=== PATIENT | male | born 1965 | race Caucasian/White ===

== ENCOUNTER 2017-01-16 00:29 | Emergency (ER) | payer OTHER ==
[2017-01-16 01:30] LABS: BASO % 0.5 % (0.0-1.0); EOS # 0.2 K/mm3 (0.0-0.50); EOS % 2.6 % (0.0-3.0); LARGE UNSTAINED CELL # 0.1 K/mm3 (0.0-0.4); LARGE UNSTAINED CELL % 1.8 % (0.0-4.0); MEAN CORPUSCULAR HEMOGLOBIN 29.2 pg (27.0-33.0); MEAN CORPUSCULAR VOLUME 85.7 fl (80.0-96.0); MONO # 0.4 K/mm3 (0.0-0.8); PLATELET COUNT, AUTOMATED 181 k/mm3 (150-450); RED CELL DISTRIBUTION WIDTH 12.7 % (11.5-14.5); WHITE BLOOD COUNT 5.6 K/mm3 (4.0-10.0)
[2017-01-16 01:38] LABS: ANION GAP 7 MEQ/L (8-16); BLOOD UREA NITROGEN 16 MG/DL (7-18); CALCIUM LEVEL 8.9 MG/DL (8.5-10.1); CARBON DIOXIDE LEVEL 29 MEQ/L (21-32); CHLORIDE LEVEL 108 MEQ/L (98-107); CREATININE FOR GFR 1.15 MG/DL (0.70-1.30); GLOMERULAR FILTRATION RATE > 60.0 (>56); GLUCOSE, FASTING 142 MG/DL (70-105); POTASSIUM SERUM 3.7 MEQ/L (3.5-5.1); SODIUM LEVEL 144 MEQ/L (136-145)
[2017-01-16] MEDS ORDERED: KETOROLAC 30 MG/ML VIAL (J1885) As Ordered ONE (02:40)
--- NOTE | 2017-01-16 04:17 | EDDOCDS ---
Physician Documentation [facility] Name: Dominick Jeter Age: 51 yrs Sex: Male : 1965 Arrival Date: 01/16/2017 Time: 00:29 Bed 4 Private MD: Disposition: 01/16/17 03:42 Discharged to Home/Self Care. Impression: Chest pain, unspecified. - Condition is Stable. - Discharge Instructions: Chest Wall Pain. - Prescriptions for Prednisone 20 mg Oral Tablet - take 2 tablet by ORAL route once daily for 5 days; 10 tablet. - Medication Reconciliation, Local Pharmacy Hours form. - Follow up: [facility]; When: Call to arrange an appointment; Reason: Continuance of care. - Problem is an acute exacerbation. - Symptoms have improved. Historical: - Allergies: Ibuprofendoesn't take due to ulcer; - Home Meds: 1. doxazosin 2 mg oral tab 1 tab once daily 2. fenofibrate 145 mg oral once daily 3. Fish Oil 1,000 mg Oral cap daily 4. metformin 500 mg Oral Tb24 2 tabs 2 times per day has held Metformin for 2 days due to having contrast dye for CT scan on 08/24/16 5. pantoprazole 40 mg oral TbEC 1 tab once daily 6. aspirin 81 mg Oral tab 7. Augmentin 875-125 mg Oral tab (Last dose: 01/15/2017 22:30) - PMHx: Diabetes - NIDDM: controlled; Hypercholesterolemia; ulcers; - PSHx: back surgery X 9; Appendectomy; Hernia repair; dorsal column stimulator; - Social history: Smoking status: Patient states was never smoker of tobacco. No barriers to communication noted, The patient speaks fluent Greek, Speaks appropriately for age. - Family history: Not pertinent. - : The pt / caregiver states he / she is not on anticoagulants. Home medication list is obtained from [employer] import data. - Exposure Risk Screening:: None identified. Vital Signs: 01/16 00:40 BP 177 / 98; Pulse 105; Resp 16; Temp 98.3(O); Pulse Ox 98% on R/A; Weight 88.9 kg / cz 195.99 lbs; Height 5 ft. 9 in. (175.26 cm); 00:48 BP 136 / 83 (auto/); js15 00:50 Pulse 80 MON; Pulse Ox 97% ; js15 01:03 BP 128 / 73 (auto/); js15 01:03 Pulse 76 MON; Pulse Ox 96% ; js15 01:18 BP 119 / 68 (auto/); js15 01:19 Pulse 72 MON; Pulse Ox 95% ; js15 03:44 BP 100 / 59; Pulse 59; Resp 18; Temp 98.6(O); Pulse Ox 95% on R/A; Pain 0/10; tigist 00:40 Body Mass Index 28.94 (88.90 kg, 175.26 cm) cz MDM: 00:34 ECG WITH READING ER PHYS+CARDIAG ordered. EDMS 00:51 Theater Manager/Pulse Ox/q 30 min VS ordered. nov 00:51 IV Saline Lock ordered. nov 00:51 Rhythm Strip to chart ordered. nov 00:51 Undress patient appropriately for examination ordered. nov 00:52 Basic Metabolic Profile Ordered. EDMS 00:52 CBC with Diff Ordered. EDMS 00:52 Cardiac Injury Profile Ordered. EDMS 00:52 Troponin Ordered. EDMS 01:05 Chest, 1 View Ordered. EDMS 02:25 Basic Metabolic Profile Reviewed. mm11 02:25 CBC with Diff Reviewed. mm11 02:25 Cardiac Injury Profile Reviewed. mm11 02:25 Troponin Reviewed. mm11 02:34 ketorolac 30 mg IVP once ordered. mm11 03:23 Financial registration complete. pm4 03:26 [facility] Payment Agreement was scanned into [employer] and attached to record. pm4 Administered Medications: 02:44 Drug: ketorolac 30 mg [ketorolac 30 mg/mL (1 mL) injection solution (1 mL)] Route: IVP; js15 Site: right antecubital; 04:15 Follow up: Response: Pain is decreased rw1 Signatures: Dispatcher [employer] EDMS Tila Naik RN RN jan Zecher, Calvin, RN RN Ba Woods LPN LPN rw1 Aubrey Arango DO DO mm11 Marta WoodRN RN js15 Jeffy Malik, Reg Reg pm4 The chart was reviewed and I authenticate all verbal orders and agree with the evaluation and treatment provided.Attachments: 03:26 [facility] Payment Agreement pm4 MTDD
--- NOTE | 2017-01-16 04:17 | EDDOCDS ---
Nurse's Notes [facility] Name: Dominick Jeter Age: 51 yrs Sex: Male : 1965 Arrival Date: 01/16/2017 Time: 00:29 Bed 4 Private MD: Diagnosis: Chest pain, unspecified Presentation: 01/16 00:35 Presenting complaint: Patient states: he started with chest pain around 2230 last night cz pt was seen at urgent care yesterday for sore throat and cough dx sinusitis and URI symptoms heavy chest feelings for several weeks seen and treated for same. 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 Adult Sepsis Screening: The patient does not have new or worsening altered mentation. Patient's respiratory rate is less than 22. Systolic blood pressure is greater than 100. Patient has a qSOFA score of 0- Negative Sepsis Screen. Suicide/Homicide risk assessment- the patient denies having any suicidal and/or homicidal ideations and does not present with any other emotional, behavioral or mental health complaints. Status: disabled . Transition of care: patient was not received from another setting of care. Red Flag criteria, patient assessed and is suitable to finish the RCE Process. 00:35 Acuity: NIKOS Level 2 cz 00:35 Method Of Arrival: Walkin/Carried/Asstd cz Triage Assessment: 00:40 General: Appears uncomfortable. Pain: Location: anterior aspect of right upper chest, cz anterior aspect of left upper chest and xyphoid area Pain currently is 8 out of 10 on a pain scale. HIV screening NA for this visit Offered previously. Historical: - Allergies: Ibuprofendoesn't take due to ulcer; - Home Meds: 1. doxazosin 2 mg oral tab 1 tab once daily 2. fenofibrate 145 mg oral once daily 3. Fish Oil 1,000 mg Oral cap daily 4. metformin 500 mg Oral Tb24 2 tabs 2 times per day has held Metformin for 2 days due to having contrast dye for CT scan on 08/24/16 5. pantoprazole 40 mg oral TbEC 1 tab once daily 6. aspirin 81 mg Oral tab 7. Augmentin 875-125 mg Oral tab (Last dose: 01/15/2017 22:30) - PMHx: Diabetes - NIDDM: controlled; Hypercholesterolemia; ulcers; - PSHx: back surgery X 9; Appendectomy; Hernia repair; dorsal column stimulator; - Social history: Smoking status: Patient states was never smoker of tobacco. No barriers to communication noted, The patient speaks fluent German, Speaks appropriately for age. - Family history: Not pertinent. - : The pt / caregiver states he / she is not on anticoagulants. Home medication list is obtained from [employer] import data. - Exposure Risk Screening:: None identified. Screenin:50 Screening information is obtained from the patient. Fall risk: No risks identified. js15 Assistance ADL's: requires no assistance with activities of daily living. Abuse/DV Screen: The patient / caregiver reports he/she is: not in a situation that causes fear, pain or injury. Nutritional screening: No deficits noted. Advance Directives: There is no active DNR order. home support is adequate. Assessment: 01:32 General: Appears uncomfortable, Behavior is anxious, appropriate for age, cooperative. js15 Pain: Location: chest and xyphoid area and anterior aspect of left upper chest and anterior aspect of right upper chest Pain currently is 10 out of 10 on a pain scale. Quality of pain is described as stabbing, Pain began 2 hours ago. Neurological: Level of Consciousness is awake, alert, obeys commands, Oriented to person, place, time. Cardiovascular: Capillary refill < 3 seconds Heart tones S1 S2 present Rhythm is sinus rhythm Chest pain is described as severe, quality is stabbing, is located in right left anterior chest wall substernal area Reports cough. Respiratory: Airway is patent Respiratory effort is even, unlabored, Respiratory pattern is regular, symmetrical, Breath sounds are diminished in left upper lobe and left posterior upper lobe. GI: Abdomen is non- distended Bowel sounds present X 4 quads. Abd is soft and non tender X 4 quads. Derm: Skin is pink, warm & dry. 04:14 Reassessment: Patient appears in no apparent distress at this time. Patient denies pain rw1 at this time. Patient states feeling better. Patient states symptoms have improved. Vital Signs: 00:40 BP 177 / 98; Pulse 105; Resp 16; Temp 98.3(O); Pulse Ox 98% on R/A; Weight 88.9 kg; cz Height 5 ft. 9 in. (175.26 cm); 00:48 BP 136 / 83 (auto/); js15 00:50 Pulse 80 MON; Pulse Ox 97% ; js15 01:03 BP 128 / 73 (auto/); js15 01:03 Pulse 76 MON; Pulse Ox 96% ; js15 01:18 BP 119 / 68 (auto/); js15 01:19 Pulse 72 MON; Pulse Ox 95% ; js15 03:44 BP 100 / 59; Pulse 59; Resp 18; Temp 98.6(O); Pulse Ox 95% on R/A; Pain 0/10; tigist 00:40 Body Mass Index 28.94 (88.90 kg, 175.26 cm) cz Vitals: 00:40 Log In Time: January 16, 2017 at 00:29. cz ED Course: 00:30 Patient visited by Katiuska Nichole. gjb 00:30 Patient moved to Waiting gjb 00:37 Triage Initiated cz 00:44 Kim Boogie RN is Primary Nurse. dsf 00:44 Patient moved to 4 dsf 00:49 Patient visited by Jaime Ramsey PCA. kb5 00:49 EKG done. (by ED staff). Reviewed by Aubrey Arango DO. kb5 00:50 Patient visited by Salina Rushing PCA. tigist 00:50 Pt greeted and oriented to ED. Patient advised of names of staff involved in care, tigist location of call marina, wait times and NPO status. Accompanied by Significant Other, Patient has correct armband on for positive identification. Placed in gown. Bed in low position. Call light in reach. Side rails up X2. secured entrance monitor on. Pulse ox on. NIBP on. 00:54 Primary Nurse role handed off by Kim Boogie RN tigist 00:56 Aubrey Arango DO is Attending Physician. mm11 00:56 Patient visited by Aubrey Arango DO. mm11 01:12 The patient / caregiver is instructed regarding the plan of care and ED course. nov 01:12 Inserted saline lock: 20 gauge in right antecubital area and blood collected. The nov patient tolerated the procedure well. 01:34 Patient visited by Marta Wood RN. js15 02:33 Patient visited by Aubrey Arango DO. mm11 03:26 [facility] Payment Agreement was scanned into [employer] and attached to record. pm4 03:39 Patient visited by Aubrey Arango DO. mm11 03:42 [facility] [place] is Referral Physician. mm11 03:45 Patient visited by Salina Rushing PCA. tigist 04:14 Discontinued IV lock intact, bleeding controlled, pressure dressing applied, No rw1 redness/swelling at site. No procedures done that require assistance. Administered Medications: 02:44 Drug: ketorolac 30 mg [ketorolac 30 mg/mL (1 mL) injection solution (1 mL)] Route: IVP; js15 Site: right antecubital; 04:15 Follow up: Response: Pain is decreased rw1 Order Results: Lab Order: Basic Metabolic Profile; SPEC'M 01/16/17 01:02 Test: GLUCOSE, FASTING; Value: 142; Range: 70-105; Abnormal: Above high normal; Units: MG/DL; Status: F Test: BLOOD UREA NITROGEN; Value: 16; Range: 7-18; Units: MG/DL; Status: F Test: CREATININE FOR GFR; Value: 1.15; Range: 0.70-1.30; Units: MG/DL; Status: F Test: GLOMERULAR FILTRATION RATE; Value: > 60.0; Range: >56; Status: F Test: SODIUM LEVEL; Value: 144; Range: 136-145; Units: MEQ/L; Status: F Test: POTASSIUM SERUM; Value: 3.7; Range: 3.5-5.1; Units: MEQ/L; Status: F Test: CHLORIDE LEVEL; Value: 108; Range: 98-107; Abnormal: Above high normal; Units: MEQ/L; Status: F Test: CARBON DIOXIDE LEVEL; Value: 29; Range: 21-32; Units: MEQ/L; Status: F Test: ANION GAP; Value: 7; Range: 8-16; Abnormal: Below low normal; Units: MEQ/L; Status: F Test: CALCIUM LEVEL; Value: 8.9; Range: 8.5-10.1; Units: MG/DL; Status: F Test Note: ; Units are mL/min/1.73 m2 Chronic Kidney Disease Staging per NKF: Stage I & II GFR >=60 Normal to Mildly Decreased Stage III GFR 30-59 Moderately Decreased Stage IV GFR 15-29 Severely Decreased Stage V GFR <15 Very Little GFR Left ESRD GFR <15 on FORENSIC COMPUTER EXAMINER Lab Order: CBC with Diff; SPEC'M 01/16/17 01:02 Test: WHITE BLOOD COUNT; Value: 5.6; Range: 4.0-10.0; Units: K/mm3; Status: F Test: RED BLOOD COUNT; Value: 4.83; Range: 4.30-6.10; Units: M/mm3; Status: F Test: HEMOGLOBIN; Value: 14.1; Range: 14.0-18.0; Units: g/dl; Status: F Test: HEMATOCRIT; Value: 41.4; Range: 42.0-52.0; Abnormal: Below low normal; Units: %; Status: F Test: MEAN CORPUSCULAR VOLUME; Value: 85.7; Range: 80.0-96.0; Units: fl; Status: F Test: MEAN CORPUSCULAR HEMOGLOBIN; Value: 29.2; Range: 27.0-33.0; Units: pg; Status: F Test: MEAN CORPUSCULAR HGB CONC; Value: 34.0; Range: 32.0-36.5; Units: g/dl; Status: F Test: RED CELL DISTRIBUTION WIDTH; Value: 12.7; Range: 11.5-14.5; Units: %; Status: F Test: PLATELET COUNT, AUTOMATED; Value: 181; Range: 150-450; Units: k/mm3; Status: F Test: NEUTROPHILS %; Value: 54.0; Range: 36.0-66.0; Units: %; Status: F Test: LYMPH %; Value: 34.0; Range: 24.0-44.0; Units: %; Status: F Test: MONO %; Value: 7.0; Range: 0.0-5.0; Abnormal: Above high normal; Units: %; Status: F Test: EOS %; Value: 2.6; Range: 0.0-3.0; Units: %; Status: F Test: BASO %; Value: 0.5; Range: 0.0-1.0; Units: %; Status: F Test: LARGE UNSTAINED CELL %; Value: 1.8; Range: 0.0-4.0; Units: %; Status: F Test: NEUTROPHILS #; Value: 3.0; Range: 1.8-7.7; Units: K/mm3; Status: F Test: LYMPH #; Value: 2.0; Range: 1.5-4.5; Units: K/mm3; Status: F Test: MONO #; Value: 0.4; Range: 0.0-0.8; Units: K/mm3; Status: F Test: EOS #; Value: 0.2; Range: 0.0-0.50; Units: K/mm3; Status: F Test: BASO #; Value: 0.0; Range: 0.0-0.2; Units: K/mm3; Status: F Test: LARGE UNSTAINED CELL #; Value: 0.1; Range: 0.0-0.4; Units: K/mm3; Status: F Lab Order: Cardiac Injury Profile; SPEC'M 01/16/17 01:02 Test: CPK CREATINE PHOSPHOKINASE; Value: 135; Range: 39-308; Units: U/L; Status: F Test: CK-MB VALUE MASS; Value: 2.0; Range: 0.0-3.6; Units: NG/ML; Status: F Test: MB/CK RELATIVE INDEX; Value: 1.48; Range: < OR =4; Status: F Test Note: ; DIAGNOSIS CRITERIA MMB ng/ml Relative Index (RI) NON-AMI < or = 5 N/A [place] > 5 < or = 4 AMI > 5 > 4 Lab Order: Troponin; SPEC'M 01/16/17 01:02 Test: TROPONIN I; Value: 0.02; Range: < 0.10; Units: NG/ML; Status: F Test Note: ; Troponin I Reference Interval for [employer] LOCI: 99th Percentile= 0.00-0.045 ng/ml Risk Stratification: <= 0.10 ng/ml Decreased Risk for Adverse Clinical Events. 0.10-1.50 ng/ml Increased Risk for Adverse Clinical Events. Evaluation of additional criterion and/or repeat testing in 2-6 hours is suggested to rule out myocardial damage. >= 1.50 ng/ml Indicative of Myocardial Injury. Outcome: 03:42 Discharge ordered by Provider. mm11 04:14 Discharge Assessment: Patient awake, alert and oriented x 3. No cognitive and/or rw1 functional deficits noted. Patient verbalized understanding of disposition instructions. patient administered narcotics -. 04:15 Discharge Assessment: patient administered narcotics - no. The following High Risk rw1 Discharge criteria are identified: None. Discharged to home ambulatory, with significant other. Condition: stable Condition: improved. Discharge instructions given to patient, Instructed on discharge instructions, follow up and referral plans. medication usage, Demonstrated understanding of instructions, medications, Pt was receptive of discharge instructions/ teaching. Prescriptions given X 1. No special radiology studies were completed. Property sent home with patient. 04:16 Patient left the ED. rw1 Signatures: Tila Naik, RN RN Jimmy Gamboa, RN RN Ba Woods LPN LPN rw1 Jaime Ramsey, WASTE MINIMIZATION TECHNICIAN WASTE MINIMIZATION TECHNICIAN kb5 Aubrey Arango, DO mm11 Salina Rushing, WASTE MINIMIZATION TECHNICIAN WASTE MINIMIZATION TECHNICIAN Payton Castillo,RN RN Marta Coughlin,RN RN js15 Katiuska Nichole Paul, Reg Reg pm4 SEPIDEH
--- NOTE | 2017-01-16 08:34 | REP ---
Clinical: Chest pain . Comparison: 08/26/2016 . Findings: The mediastinum and cardiac silhouette are stable and within normal limits for portable technique. Thoracic epidural stimulator device in stable position. The lung christie are clear without acute consolidation, effusion, or pneumothorax. Skeletal structures are intact. Impression: Normal portable chest x-ray Signed by Dominick Valle MD 01/16/2017 08:25 A
--- NOTE | 2017-01-16 08:38 | ECGEPIP ---
Stationary ECG Study [facility] - ED Test Date: 2017-01-16 Pat Name: ED BUTLER Department: Room: - Gender: M [employer] Electrician: LUCILLE : 1965 Requested By: JULIAN Iglesias Order Number: [id number] Reading MD: Burak Parsons Measurements Intervals [place] Rate: 83 P: 49 HI: 132 QRS: 54 QRSD: 101 T: 53 QT: 365 QTc: 431 Interpretive Statements SINUS RHYTHM POSSIBLE LAE SIMILAR TO 08/26/16 Electronically Signed On 01-16-2017 8:37:52 EST by Burak Parsons
--- NOTE | 2017-01-18 05:17 | EDDOCDS ---
Physician Documentation [facility] Name: Dominick Jeter Age: 51 yrs Sex: Male : 1965 Arrival Date: 01/16/2017 Time: 00:29 Bed 4 Private MD: Disposition: 01/16/17 03:42 Discharged to Home/Self Care. Impression: Chest pain, unspecified. - Condition is Stable. - Discharge Instructions: Chest Wall Pain. - Prescriptions for Prednisone 20 mg Oral Tablet - take 2 tablet by ORAL route once daily for 5 days; 10 tablet. - Medication Reconciliation, Local Pharmacy Hours form. - Follow up: [facility]; When: Call to arrange an appointment; Reason: Continuance of care. - Problem is an acute exacerbation. - Symptoms have improved. Historical: - Allergies: Ibuprofendoesn't take due to ulcer; - Home Meds: 1. doxazosin 2 mg oral tab 1 tab once daily 2. fenofibrate 145 mg oral once daily 3. Fish Oil 1,000 mg Oral cap daily 4. metformin 500 mg Oral Tb24 2 tabs 2 times per day has held Metformin for 2 days due to having contrast dye for CT scan on 08/24/16 5. pantoprazole 40 mg oral TbEC 1 tab once daily 6. aspirin 81 mg Oral tab 7. Augmentin 875-125 mg Oral tab (Last dose: 01/15/2017 22:30) - PMHx: Diabetes - NIDDM: controlled; Hypercholesterolemia; ulcers; - PSHx: back surgery X 9; Appendectomy; Hernia repair; dorsal column stimulator; - Social history: Smoking status: Patient states was never smoker of tobacco. No barriers to communication noted, The patient speaks fluent Khmer, Speaks appropriately for age. - Family history: Not pertinent. - : The pt / caregiver states he / she is not on anticoagulants. Home medication list is obtained from [employer] import data. - Exposure Risk Screening:: None identified. Vital Signs: 01/16 00:40 BP 177 / 98; Pulse 105; Resp 16; Temp 98.3(O); Pulse Ox 98% on R/A; Weight 88.9 kg / cz 195.99 lbs; Height 5 ft. 9 in. (175.26 cm); 00:48 BP 136 / 83 (auto/); js15 00:50 Pulse 80 MON; Pulse Ox 97% ; js15 01:03 BP 128 / 73 (auto/); js15 01:03 Pulse 76 MON; Pulse Ox 96% ; js15 01:18 BP 119 / 68 (auto/); js15 01:19 Pulse 72 MON; Pulse Ox 95% ; js15 03:44 BP 100 / 59; Pulse 59; Resp 18; Temp 98.6(O); Pulse Ox 95% on R/A; Pain 0/10; tigist 00:40 Body Mass Index 28.94 (88.90 kg, 175.26 cm) cz MDM: 00:34 ECG WITH READING ER PHYS+CARDIAG ordered. EDMS 00:51 Preassembler And Inspector/Pulse Ox/q 30 min VS ordered. nov 00:51 IV Saline Lock ordered. nov 00:51 Rhythm Strip to chart ordered. nov 00:51 Undress patient appropriately for examination ordered. nov 00:52 Basic Metabolic Profile Ordered. EDMS 00:52 CBC with Diff Ordered. EDMS 00:52 Cardiac Injury Profile Ordered. EDMS 00:52 Troponin Ordered. EDMS 01:05 Chest, 1 View Ordered. EDMS 02:25 Basic Metabolic Profile Reviewed. mm11 02:25 CBC with Diff Reviewed. mm11 02:25 Cardiac Injury Profile Reviewed. mm11 02:25 Troponin Reviewed. mm11 02:34 ketorolac 30 mg IVP once ordered. mm11 03:23 Financial registration complete. pm4 03:26 [facility] Payment Agreement was scanned into [employer] and attached to record. pm4 17:09 T-Sheet-- Draft Copy was scanned into [employer] and attached to record. klr 01/17 11:48 ECG/EKG was scanned into [employer] and attached to record. gb Administered Medications: 01/16 02:44 Drug: ketorolac 30 mg [ketorolac 30 mg/mL (1 mL) injection solution (1 mL)] Route: IVP; Site: right antecubital; 04:15 Follow up: Response: Pain is decreased rw1 Signatures: Dispatcher [employer] EDMS Tila Naik RN RN jan Zecher, Calvin, RN RN cz Michael, Ingrid, Reg Reg gb Ba Galloway,METALLURGICAL OR MATERIALS TECHNICIAN METALLURGICAL OR MATERIALS TECHNICIAN rw1 Aubrey Arango DO DO mm11 Marta Wood RN RN js15 Yuni Antonio Paul, Reg Reg pm4 The chart was reviewed and I authenticate all verbal orders and agree with the evaluation and treatment provided.Attachments: 03:26 [facility] Payment Agreement pm4 17:09 T-Sheet-- Draft Copy klr 01/17 11:48 ECG/EKG gb Chart Complete MTDD
--- NOTE | 2017-01-18 05:17 | EDDOCDS ---
Physician Documentation [facility] Name: Dominick Jeter Age: 51 yrs Sex: Male : 1965 Arrival Date: 01/16/2017 Time: 00:29 Bed 4 Private MD: Disposition: 01/16/17 03:42 Discharged to Home/Self Care. Impression: Chest pain, unspecified. - Condition is Stable. - Discharge Instructions: Chest Wall Pain. - Prescriptions for Prednisone 20 mg Oral Tablet - take 2 tablet by ORAL route once daily for 5 days; 10 tablet. - Medication Reconciliation, Local Pharmacy Hours form. - Follow up: [facility]; When: Call to arrange an appointment; Reason: Continuance of care. - Problem is an acute exacerbation. - Symptoms have improved. Historical: - Allergies: Ibuprofendoesn't take due to ulcer; - Home Meds: 1. doxazosin 2 mg oral tab 1 tab once daily 2. fenofibrate 145 mg oral once daily 3. Fish Oil 1,000 mg Oral cap daily 4. metformin 500 mg Oral Tb24 2 tabs 2 times per day has held Metformin for 2 days due to having contrast dye for CT scan on 08/24/16 5. pantoprazole 40 mg oral TbEC 1 tab once daily 6. aspirin 81 mg Oral tab 7. Augmentin 875-125 mg Oral tab (Last dose: 01/15/2017 22:30) - PMHx: Diabetes - NIDDM: controlled; Hypercholesterolemia; ulcers; - PSHx: back surgery X 9; Appendectomy; Hernia repair; dorsal column stimulator; - Social history: Smoking status: Patient states was never smoker of tobacco. No barriers to communication noted, The patient speaks fluent Occitan, Speaks appropriately for age. - Family history: Not pertinent. - : The pt / caregiver states he / she is not on anticoagulants. Home medication list is obtained from [employer] import data. - Exposure Risk Screening:: None identified. Vital Signs: 01/16 00:40 BP 177 / 98; Pulse 105; Resp 16; Temp 98.3(O); Pulse Ox 98% on R/A; Weight 88.9 kg / cz 195.99 lbs; Height 5 ft. 9 in. (175.26 cm); 00:48 BP 136 / 83 (auto/); js15 00:50 Pulse 80 MON; Pulse Ox 97% ; js15 01:03 BP 128 / 73 (auto/); js15 01:03 Pulse 76 MON; Pulse Ox 96% ; js15 01:18 BP 119 / 68 (auto/); js15 01:19 Pulse 72 MON; Pulse Ox 95% ; js15 03:44 BP 100 / 59; Pulse 59; Resp 18; Temp 98.6(O); Pulse Ox 95% on R/A; Pain 0/10; tigist 00:40 Body Mass Index 28.94 (88.90 kg, 175.26 cm) cz MDM: 00:34 ECG WITH READING ER PHYS+CARDIAG ordered. EDMS 00:51 Store Clerk/Pulse Ox/q 30 min VS ordered. nov 00:51 IV Saline Lock ordered. nov 00:51 Rhythm Strip to chart ordered. nov 00:51 Undress patient appropriately for examination ordered. nov 00:52 Basic Metabolic Profile Ordered. EDMS 00:52 CBC with Diff Ordered. EDMS 00:52 Cardiac Injury Profile Ordered. EDMS 00:52 Troponin Ordered. EDMS 01:05 Chest, 1 View Ordered. EDMS 02:25 Basic Metabolic Profile Reviewed. mm11 02:25 CBC with Diff Reviewed. mm11 02:25 Cardiac Injury Profile Reviewed. mm11 02:25 Troponin Reviewed. mm11 02:34 ketorolac 30 mg IVP once ordered. mm11 03:23 Financial registration complete. pm4 03:26 [facility] Payment Agreement was scanned into [employer] and attached to record. pm4 17:09 T-Sheet-- Draft Copy was scanned into [employer] and attached to record. klr 01/17 11:48 ECG/EKG was scanned into [employer] and attached to record. gb Administered Medications: 01/16 02:44 Drug: ketorolac 30 mg [ketorolac 30 mg/mL (1 mL) injection solution (1 mL)] Route: IVP; Site: right antecubital; 04:15 Follow up: Response: Pain is decreased rw1 Signatures: Dispatcher [employer] EDMS Tila Naik RN RN jan Zecher, Calvin, RN RN cz Michael, Ingrid, Reg Reg gb Ba Galloway,SERVICES EXECUTIVE SERVICES EXECUTIVE rw1 Aubrey Arango DO DO mm11 Marta Wood RN RN js15 Yuni Antonio Paul, Reg Reg pm4 The chart was reviewed and I authenticate all verbal orders and agree with the evaluation and treatment provided.Attachments: 03:26 [facility] Payment Agreement pm4 17:09 T-Sheet-- Draft Copy klr 01/17 11:48 ECG/EKG gb Chart Complete MTDD
--- NOTE | 2017-01-18 05:17 | EDDOCDS ---
[facility] Name: Dominick Jeter Age: 51 yrs Sex: Male : 1965 Arrival Date: 01/16/2017 Time: 00:29 Bed 4 Private MD: Diagnosis: Chest pain, unspecified Presentation: 01/16 00:35 Presenting complaint: Patient states: he started with chest pain around 2230 last night cz pt was seen at urgent care yesterday for sore throat and cough dx sinusitis and URI symptoms heavy chest feelings for several weeks seen and treated for same. Aspirin was taken [employer]. Adult Sepsis Screening: The patient does not have new or worsening altered mentation. Patient's respiratory rate is less than 22. Systolic blood pressure is greater than 100. Patient has a qSOFA score of 0- Negative Sepsis Screen. Suicide/Homicide risk assessment- the patient denies having any suicidal and/or homicidal ideations and does not present with any other emotional, behavioral or mental health complaints. Status: disabled . Transition of care: patient was not received from another setting of care. Red Flag criteria, patient assessed and is suitable to finish the RCE Process. 00:35 Acuity: NIKSO Level 2 cz 00:35 Method Of Arrival: Walkin/Carried/Asstd cz Triage Assessment: 00:40 General: Appears uncomfortable. Pain: Location: anterior aspect of right upper chest, cz anterior aspect of left upper chest and xyphoid area Pain currently is 8 out of 10 on a pain scale. HIV screening NA for this visit Offered previously. Historical: - Allergies: Ibuprofendoesn't take due to ulcer; - Home Meds: 1. doxazosin 2 mg oral tab 1 tab once daily 2. fenofibrate 145 mg oral once daily 3. Fish Oil 1,000 mg Oral cap daily 4. metformin 500 mg Oral Tb24 2 tabs 2 times per day has held Metformin for 2 days due to having contrast dye for CT scan on 08/24/16 5. pantoprazole 40 mg oral TbEC 1 tab once daily 6. aspirin 81 mg Oral tab 7. Augmentin 875-125 mg Oral tab (Last dose: 01/15/2017 22:30) - PMHx: Diabetes - NIDDM: controlled; Hypercholesterolemia; ulcers; - PSHx: back surgery X 9; Appendectomy; Hernia repair; dorsal column stimulator; - Social history: Smoking status: Patient states was never smoker of tobacco. No barriers to communication noted, The patient speaks fluent Icelandic, Speaks appropriately for age. - Family history: Not pertinent. - : The pt / caregiver states he / she is not on anticoagulants. Home medication list is obtained from [employer] import data. - Exposure Risk Screening:: None identified. Screenin:50 Screening information is obtained from the patient. Fall risk: No risks identified. js15 Assistance ADL's: requires no assistance with activities of daily living. Abuse/DV Screen: The patient / caregiver reports he/she is: not in a situation that causes fear, pain or injury. Nutritional screening: No deficits noted. Advance Directives: There is no active DNR order. home support is adequate. Assessment: 01:32 General: Appears uncomfortable, Behavior is anxious, appropriate for age, cooperative. js15 Pain: Location: chest and xyphoid area and anterior aspect of left upper chest and anterior aspect of right upper chest Pain currently is 10 out of 10 on a pain scale. Quality of pain is described as stabbing, Pain began 2 hours ago. Neurological: Level of Consciousness is awake, alert, obeys commands, Oriented to person, place, time. Cardiovascular: Capillary refill < 3 seconds Heart tones S1 S2 present Rhythm is sinus rhythm Chest pain is described as severe, quality is stabbing, is located in right left anterior chest wall substernal area Reports cough. Respiratory: Airway is patent Respiratory effort is even, unlabored, Respiratory pattern is regular, symmetrical, Breath sounds are diminished in left upper lobe and left posterior upper lobe. GI: Abdomen is non- distended Bowel sounds present X 4 quads. Abd is soft and non tender X 4 quads. Derm: Skin is pink, warm & dry. 04:14 Reassessment: Patient appears in no apparent distress at this time. Patient denies pain rw1 at this time. Patient states feeling better. Patient states symptoms have improved. Vital Signs: 00:40 BP 177 / 98; Pulse 105; Resp 16; Temp 98.3(O); Pulse Ox 98% on R/A; Weight 88.9 kg; cz Height 5 ft. 9 in. (175.26 cm); 00:48 BP 136 / 83 (auto/); js15 00:50 Pulse 80 MON; Pulse Ox 97% ; js15 01:03 BP 128 / 73 (auto/); js15 01:03 Pulse 76 MON; Pulse Ox 96% ; js15 01:18 BP 119 / 68 (auto/); js15 01:19 Pulse 72 MON; Pulse Ox 95% ; js15 03:44 BP 100 / 59; Pulse 59; Resp 18; Temp 98.6(O); Pulse Ox 95% on R/A; Pain 0/10; tigist 00:40 Body Mass Index 28.94 (88.90 kg, 175.26 cm) cz Vitals: 00:40 Log In Time: January 16, 2017 at 00:29. cz ED Course: 00:30 Patient visited by Katiuska Nichole. gjb 00:30 Patient moved to Waiting gjb 00:37 Triage Initiated cz 00:44 Kim Boogie RN is Primary Nurse. dsf 00:44 Patient moved to 4 dsf 00:49 Patient visited by Jaime Ramsey PCA. kb5 00:49 EKG done. (by ED staff). Reviewed by Aubrey Arango DO. kb5 00:50 Patient visited by Salina Rushing PCA. tigist 00:50 Pt greeted and oriented to ED. Patient advised of names of staff involved in care, tigist location of call marina, wait times and NPO status. Accompanied by Significant Other, Patient has correct armband on for positive identification. Placed in gown. Bed in low position. Call light in reach. Side rails up X2. 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 Pulse ox on. NIBP on. 00:54 Primary Nurse role handed off by Kim Boogie RN tigist 00:56 Aubrey Arango DO is Attending Physician. mm11 00:56 Patient visited by Aubrey Arango DO. mm11 01:12 The patient / caregiver is instructed regarding the plan of care and ED course. nov 01:12 Inserted saline lock: 20 gauge in right antecubital area and blood collected. The nov patient tolerated the procedure well. 01:34 Patient visited by Marta Wood RN. js15 02:33 Patient visited by Aubrey Arango DO. mm11 03:26 [facility] Payment Agreement was scanned into [employer] and attached to record. pm4 03:39 Patient visited by Aubrey Arango DO. mm11 03:42 [facility], [place] is Referral Physician. mm11 03:45 Patient visited by Salina Rushing PCA. tigist 04:14 Discontinued IV lock intact, bleeding controlled, pressure dressing applied, No rw1 redness/swelling at site. No procedures done that require assistance. 08:38 EKG-ADULT Returned. EDMS 08:39 Chest, 1 View Returned. EDMS 17:09 T-Sheet-- Draft Copy was scanned into [employer] and attached to record. klr 02 11:48 ECG/EKG was scanned into [employer] and attached to record. gb Administered Medications: 01/16 02:44 Drug: ketorolac 30 mg [ketorolac 30 mg/mL (1 mL) injection solution (1 mL)] Route: IVP; js15 Site: right antecubital; 04:15 Follow up: Response: Pain is decreased rw1 Order Results: Lab Order: Basic Metabolic Profile; SPEC'M 01/16/17 01:02 Test: GLUCOSE, FASTING; Value: 142; Range: 70-105; Abnormal: Above high normal; Units: MG/DL; Status: F Test: BLOOD UREA NITROGEN; Value: 16; Range: 7-18; Units: MG/DL; Status: F Test: CREATININE FOR GFR; Value: 1.15; Range: 0.70-1.30; Units: MG/DL; Status: F Test: GLOMERULAR FILTRATION RATE; Value: > 60.0; Range: >56; Status: F Test: SODIUM LEVEL; Value: 144; Range: 136-145; Units: MEQ/L; Status: F Test: POTASSIUM SERUM; Value: 3.7; Range: 3.5-5.1; Units: MEQ/L; Status: F Test: CHLORIDE LEVEL; Value: 108; Range: 98-107; Abnormal: Above high normal; Units: MEQ/L; Status: F Test: CARBON DIOXIDE LEVEL; Value: 29; Range: 21-32; Units: MEQ/L; Status: F Test: ANION GAP; Value: 7; Range: 8-16; Abnormal: Below low normal; Units: MEQ/L; Status: F Test: CALCIUM LEVEL; Value: 8.9; Range: 8.5-10.1; Units: MG/DL; Status: F Test Note: ; Units are mL/min/1.73 m2 Chronic Kidney Disease Staging per NKF: Stage I & II GFR >=60 Normal to Mildly Decreased Stage III GFR 30-59 Moderately Decreased Stage IV GFR 15-29 Severely Decreased Stage V GFR <15 Very Little GFR Left ESRD GFR <15 on [employer] Lab Order: CBC with Diff; JUAN'Martina 01/16/17 01:02 Test: WHITE BLOOD COUNT; Value: 5.6; Range: 4.0-10.0; Units: K/mm3; Status: F Test: RED BLOOD COUNT; Value: 4.83; Range: 4.30-6.10; Units: M/mm3; Status: F Test: HEMOGLOBIN; Value: 14.1; Range: 14.0-18.0; Units: g/dl; Status: F Test: HEMATOCRIT; Value: 41.4; Range: 42.0-52.0; Abnormal: Below low normal; Units: %; Status: F Test: MEAN CORPUSCULAR VOLUME; Value: 85.7; Range: 80.0-96.0; Units: fl; Status: F Test: MEAN CORPUSCULAR HEMOGLOBIN; Value: 29.2; Range: 27.0-33.0; Units: pg; Status: F Test: MEAN CORPUSCULAR HGB CONC; Value: 34.0; Range: 32.0-36.5; Units: g/dl; Status: F Test: RED CELL DISTRIBUTION WIDTH; Value: 12.7; Range: 11.5-14.5; Units: %; Status: F Test: PLATELET COUNT, AUTOMATED; Value: 181; Range: 150-450; Units: k/mm3; Status: F Test: NEUTROPHILS %; Value: 54.0; Range: 36.0-66.0; Units: %; Status: F Test: LYMPH %; Value: 34.0; Range: 24.0-44.0; Units: %; Status: F Test: MONO %; Value: 7.0; Range: 0.0-5.0; Abnormal: Above high normal; Units: %; Status: F Test: EOS %; Value: 2.6; Range: 0.0-3.0; Units: %; Status: F Test: BASO %; Value: 0.5; Range: 0.0-1.0; Units: %; Status: F Test: LARGE UNSTAINED CELL %; Value: 1.8; Range: 0.0-4.0; Units: %; Status: F Test: NEUTROPHILS #; Value: 3.0; Range: 1.8-7.7; Units: K/mm3; Status: F Test: LYMPH #; Value: 2.0; Range: 1.5-4.5; Units: K/mm3; Status: F Test: MONO #; Value: 0.4; Range: 0.0-0.8; Units: K/mm3; Status: F Test: EOS #; Value: 0.2; Range: 0.0-0.50; Units: K/mm3; Status: F Test: BASO #; Value: 0.0; Range: 0.0-0.2; Units: K/mm3; Status: F Test: LARGE UNSTAINED CELL #; Value: 0.1; Range: 0.0-0.4; Units: K/mm3; Status: F Lab Order: Cardiac Injury Profile; SPEC'M 01/16/17 01:02 Test: CPK CREATINE PHOSPHOKINASE; Value: 135; Range: 39-308; Units: U/L; Status: F Test: CK-MB VALUE MASS; Value: 2.0; Range: 0.0-3.6; Units: NG/ML; Status: F Test: MB/CK RELATIVE INDEX; Value: 1.48; Range: < OR =4; Status: F Test Note: ; DIAGNOSIS CRITERIA MMB ng/ml Relative Index (RI) NON-AMI < or = 5 N/A PEÑA ZONE > 5 < or = 4 AMI > 5 > 4 Lab Order: Troponin; SPEC'M 01/16/17 01:02 Test: TROPONIN I; Value: 0.02; Range: < 0.10; Units: NG/ML; Status: F Test Note: ; Troponin I Reference Interval for [employer] LOCI: 99th Percentile= 0.00-0.045 ng/ml Risk Stratification: <= 0.10 ng/ml Decreased Risk for Adverse Clinical Events. 0.10-1.50 ng/ml Increased Risk for Adverse Clinical Events. Evaluation of additional criterion and/or repeat testing in 2-6 hours is suggested to rule out myocardial damage. >= 1.50 ng/ml Indicative of Myocardial Injury. Radiology Order: Chest, 1 View Test: Chest, 1 View REASON FOR EXAMINATION: Chest Pain; Clinical: Chest pain .; ; Comparison: 08/26/2016 .; ; Findings:; The mediastinum and cardiac silhouette are stable and within normal limits for; portable technique. Thoracic epidural stimulator device in stable position. The; lung christie are clear without acute consolidation, effusion, or pneumothorax.; Skeletal structures are intact.; ; Impression:; Normal portable chest x-ray; ; ; Signed by; Dominick Valle MD 01/16/2017 08:25 A; Outcome: 03:42 Discharge ordered by Provider. mm11 04:14 Discharge Assessment: Patient awake, alert and oriented x 3. No cognitive and/or rw1 functional deficits noted. Patient verbalized understanding of disposition instructions. patient administered narcotics -. 04:15 Discharge Assessment: patient administered narcotics - no. The following High Risk rw1 Discharge criteria are identified: None. Discharged to home ambulatory, with significant other. Condition: stable Condition: improved. Discharge instructions given to patient, Instructed on discharge instructions, follow up and referral plans. medication usage, Demonstrated understanding of instructions, medications, Pt was receptive of discharge instructions/ teaching. Prescriptions given X 1. No special radiology studies were completed. Property sent home with patient. 04:16 Patient left the ED. rw1 Signatures: Dispatcher [employer] EDMS Tila Naik RN RN jan Zecher, Calvin, RN RN cz Barnhardt, Gloria, Reg Reg gb Laverne,Ba,DISPLAY MECHANIC DISPLAY MECHANIC rw1 Jaime Ramsey, NUT CULLER NUT CULLER kb5 Aubrey Arango, DO DO mm11 Salina Rushing, NUT CULLER NUT CULLER Payton CastilloRN Marta CastorenaRN RN Katiuska Cano Kathie klr Montondo, Paul, Reg Reg pm4 Chart Complete MTDD
== END 2017-01-16 04:16 | disposition home or self-care (01) ==
LOC: M ED 00:29
DX: R07.9 Chest pain, unspecified (principal); E11.9 Type 2 diabetes mellitus without complications; E78.00 Pure hypercholesterolemia, unspecified; Z79.899 Other long term (current) drug therapy; Z79.84 Long term (current) use of oral hypoglycemic drugs
CPT/HCPCS: 36415; 71010; 80048; 82550; 82553; 84484; 85025; 93005; 93041; 96374; 99285; J1885

== ENCOUNTER → 2017-03-09 | Outpatient (CLI) | payer OTHER ==
[~2017-03-09] VITALS: Ht 175.3 cm; Wt 88.9 kg
[~2017-03-09] MED LIST: AMOX875T2 PO; ASPI1TAB PO; BISA10SU27 PR; DOXA1TAB41 PO; FENO145T PO; FISH100049 PO; FLUC150T PO; FLUO5DRO TOP; FLUOCRE TOP; GLIP10TA PO; GLIP5TAB8 PO; LIDO1OIN2 TOP; METF500T4 PO; NAPR500T2 PO; NS 1,000 ML IV SCH; PRED20TA PO; PROPOFOL 200 MG/20 ML VIAL As Ordered ONE; PROTPAK PO; SM A PO; SUCR1TA PO; TRIC145T PO; VITA-113 PO
--- NOTE | 2017-03-09 13:03 | ROOR ---
Patient Name: Dominick Jeter Procedure Date: 03/09/2017 12:50 PM Date of : 1965 Age: 51 Room: [facility] Gender: Male Note Status: Finalized Procedure: Upper GI endoscopy + Biopsies Indications: Heartburn, Exclusion of peptic ulcer, Follow-up of peptic ulcer Providers: Darrell Guzman MD Referring MD: MELA CRUZ MD Requesting Provider: Medicines: Monitored Anesthesia Care Complications: No immediate complications. Procedure: Pre-Anesthesia Assessment: - The heart rate, respiratory rate, oxygen saturations, blood pressure, adequacy of pulmonary ventilation, and response to care were monitored throughout the procedure. The Endoscope was introduced through the mouth, and advanced to the second part of duodenum. The upper GI endoscopy was accomplished without difficulty. The patient tolerated the procedure well. Findings: The Z-line was regular and was found 40 cm from the incisors. No other significant abnormalities were identified in a careful examination of the stomach. Biopsies were taken with a cold forceps in the gastric antrum for Helicobacter pylori testing. The exam of the duodenum was otherwise normal. Impression: - Z-line regular, 40 cm from the incisors. - Biopsies were taken with a cold forceps for Helicobacter pylori testing. - The examination was otherwise normal. Recommendation: - Patient has a contact number available for emergencies. The signs and symptoms of potential delayed complications were discussed with the patient. Return to normal activities tomorrow. Written discharge instructions were provided to the patient. - High fiber diet. - Discharge patient to home. - Continue present medications. - Await pathology results. - Return to referring physician. - The findings and recommendations were discussed with the patient's family. - Check Portal Online for Path Results.([email or web address]) Darrell Guzman MD Darrell Guzman MD 03/09/2017 1:02:31 PM This report has been signed electronically. Number of Addenda: 0 Note Initiated On: 03/09/2017 12:50 PM Estimated Blood Loss: Estimated blood loss: none.
--- NOTE | 2017-03-09 13:25 | ROOR ---
Patient Name: Dominick Jeter Procedure Date: 03/09/2017 12:51 PM Date of : 1965 Age: 51 Room: [facility] Gender: Male Note Status: Finalized Procedure: Colonoscopy to Cecum Indications: Screening for colorectal malignant neoplasm Providers: Darrell Guzman MD Referring MD: MELA CRUZ MD Requesting Provider: Medicines: Monitored Anesthesia Care Complications: No immediate complications. Procedure: Pre-Anesthesia Assessment: - The heart rate, respiratory rate, oxygen saturations, blood pressure, adequacy of pulmonary ventilation, and response to care were monitored throughout the procedure. The Colonoscope was introduced through the anus and advanced to the cecum, identified by appendiceal orifice and ileocecal valve. The colonoscopy was performed without difficulty. The patient tolerated the procedure well. The quality of the bowel preparation was excellent. Findings: The perianal and digital rectal examinations were normal. Non-bleeding internal hemorrhoids were found during retroflexion. The hemorrhoids were small. Multiple small and large-mouthed diverticula were found in the recto-sigmoid colon, sigmoid colon and descending colon. A small polyp was found in the mid ascending colon. The polyp was sessile. The polyp was removed with a cold biopsy forceps. Resection and retrieval were complete. The exam was otherwise without abnormality on direct and retroflexion views. Impression: - Non-bleeding internal hemorrhoids. - Diverticulosis in the recto-sigmoid colon, in the sigmoid colon and in the descending colon. - One small polyp in the mid ascending colon, removed with a cold biopsy forceps. Resected and retrieved. - The examination was otherwise normal on direct and retroflexion views. - The exam was otherwise normal to the cecum. Recommendation: - Patient has a contact number available for emergencies. The signs and symptoms of potential delayed complications were discussed with the patient. Return to normal activities tomorrow. Written discharge instructions were provided to the patient. - High fiber diet. - Discharge patient to home. - Continue present medications. - Await pathology results. - Repeat colonoscopy in 5 years for surveillance based on pathology results. - Return to referring physician. - The findings and recommendations were discussed with the patient's family. - Check Portal Online for Path Results.([email or web address]) Darrell Guzman MD Darrell Guzman MD 03/09/2017 1:25:17 PM This report has been signed electronically. Number of Addenda: 0 Note Initiated On: 03/09/2017 12:51 PM Estimated Blood Loss: Estimated blood loss: none.
[2017-03-09 13:55] VITALS: BP 116/71
== END ==
LOC: M OPP 11:42
PROVIDERS: ATTEND Internal Medicine Gastroenterology
DX: Z12.11 Encounter for screening for malignant neoplasm of colon (principal); D12.2 Benign neoplasm of ascending colon; K64.8 Other hemorrhoids; K57.30 Diverticulosis of large intestine without perforation or abscess without bleeding; R12 Heartburn; R27.9 Unspecified lack of coordination; K29.00 Acute gastritis without bleeding; K31.9 Disease of stomach and duodenum, unspecified; Z85.820 Personal history of malignant melanoma of skin; G47.30 Sleep apnea, unspecified; E66.9 Obesity, unspecified; Z79.82 Long term (current) use of aspirin; Z88.6 Allergy status to analgesic agent

== ENCOUNTER → 2021-08-21 | Outpatient (CLI) | payer OTHER ==
[~2021-08-21] MED LIST changes: -ASPI1TAB PO; +ASPI81TA26 PO; -FENO145T PO; +FENO145T7 PO; -FLUO5DRO TOP; +METF-838 PO; -METF500T4 PO; +NAPR-885 PO; -NAPR500T2 PO; -NS 1,000 ML IV SCH; -PROPOFOL 200 MG/20 ML VIAL As Ordered ONE; -TRIC145T PO; +TRIC145T22 PO; +[UNRECOGNIZED DRUG - CODE] TOP
--- NOTE | 2021-08-21 10:32 | REP ---
INDICATION: BILAT MIDDLE FINGER PAIN. COMPARISON: None. TECHNIQUE: Six views, three views of each hand. Bilateral study. FINDINGS: Multiple views of each hand demonstrate overall normal mineralization. There is mild osteoarthritic spurring at the 1st MCP joint and 1st IP joint of the right hand. On the left there is also spurring at these 2 articulations. There is minimal spur formation at the D IP joint of the 5th finger on the left as well. Bones, joints, soft tissues are otherwise unremarkable. IMPRESSION: Mild osteoarthritic changes. <Electronically signed by Christopher Johnson > 08/21/21 [id number]
== END ==
LOC: M SOG 08:46
PROVIDERS: ATTEND Orthopaedic Surgery Sports Medicine
DX: M65.331 Trigger finger, right middle finger (principal); M65.332 Trigger finger, left middle finger

== ENCOUNTER → 2022-10-31 | Outpatient (CLI) | payer OTHER ==
[~2022-10-31] MED LIST changes: +ALLE10TA62 PO; +ESOM0.1C PO; +FAMO20TA PO; -FLUC150T PO; +FLUC150T9 PO; +JARD1TAB3 PO; +MULTTAB61 PO; +NESI25TA PO; +OMEGCAP4 PO; +PIOG1TAB37 PO; +ROSU40TA4 PO
== END ==
LOC: M LABSMTC 10:16
PROVIDERS: ATTEND Anesthesiology
DX: Z01.812 Encounter for preprocedural laboratory examination (principal); Z11.52 Encounter for screening for COVID-19

== ENCOUNTER 2022-11-03 08:16 | Day surgery (SDC) | payer OTHER ==
[~2022-11-03] VITALS: Ht 175.3 cm; Wt 101.6 kg
[~2022-11-03 08:16] MED LIST changes: +NS 1,000 ML IV ONE
[2022-11-03] MEDS ORDERED: LIDOCAINE 2% 100MG/5ML SDV (FOR ANES.) As Ordered ONE (09:54)
[2022-11-03] MEDS ORDERED: fentaNYL 100 MCG/2 ML INJECTION As Ordered ONE (09:54)
[2022-11-03] MEDS ORDERED: propofoL 500 MG/50 ML VIAL As Ordered ONE (09:54)
[2022-11-03 10:50] VITALS: BP 117/65
== END 2022-11-03 11:07 | disposition home or self-care (01) ==
LOC: M OPP 08:16
PROVIDERS: ATTEND Internal Medicine Gastroenterology
DX: Z12.11 Encounter for screening for malignant neoplasm of colon (principal); Z86.010 Personal history of colon polyps; D12.2 Benign neoplasm of ascending colon; K64.0 First degree hemorrhoids; K57.30 Diverticulosis of large intestine without perforation or abscess without bleeding; K22.89 Other specified disease of esophagus; K29.70 Gastritis, unspecified, without bleeding; Z79.02 Long term (current) use of antithrombotics/antiplatelets; Z79.84 Long term (current) use of oral hypoglycemic drugs; Z79.899 Other long term (current) drug therapy; Z88.6 Allergy status to analgesic agent; E11.9 Type 2 diabetes mellitus without complications; G47.30 Sleep apnea, unspecified; Z99.89 Dependence on other enabling machines and devices; E78.00 Pure hypercholesterolemia, unspecified; K76.0 Fatty (change of) liver, not elsewhere classified
CPT/HCPCS: 43239; 45380; 88305; J3010

== ENCOUNTER → 2023-04-26 | Outpatient (CLI) | payer OTHER ==
[~2023-04-26] MED LIST changes: -NS 1,000 ML IV ONE
== END ==
LOC: M PAIN 08:00
PROVIDERS: ATTEND Nurse Practitioner Family
DX: M50.10 Cervical disc disorder with radiculopathy, unspecified cervical region (principal); G89.29 Other chronic pain; E11.9 Type 2 diabetes mellitus without complications; E78.00 Pure hypercholesterolemia, unspecified; Z85.820 Personal history of malignant melanoma of skin; Z79.84 Long term (current) use of oral hypoglycemic drugs; Z79.899 Other long term (current) drug therapy; Z88.6 Allergy status to analgesic agent

== ENCOUNTER → 2023-06-02 | Outpatient (CLI) | payer OTHER ==
[~2023-06-02] MED LIST changes: +ISOVUE-M 300 61% 15ML VIAL As Ordered ONE; +LIDOCAINE 1% SDV 30ML VIAL As Ordered ONE; +diazePAM 5MG TABLET As Ordered ONE; +methylPREDNISolone SUSP 40MG/ML 1ML VIAL (DEPO MEDROL) As Ordered ONE; +oxyCODONE 5MG TAB As Ordered ONE
== END ==
LOC: M PAIN 10:30
PROVIDERS: ATTEND Anesthesiology
DX: M50.13 Cervical disc disorder with radiculopathy, cervicothoracic region (principal); E11.9 Type 2 diabetes mellitus without complications; E78.00 Pure hypercholesterolemia, unspecified; Z95.820 Peripheral vascular angioplasty status with implants and grafts; Z79.84 Long term (current) use of oral hypoglycemic drugs; Z79.899 Other long term (current) drug therapy; Z88.6 Allergy status to analgesic agent
CPT/HCPCS: 62321; J1030; Q9967

== ENCOUNTER → 2023-07-07 | Outpatient (CLI) | payer OTHER ==
[~2023-07-07] MED LIST changes: -ISOVUE-M 300 61% 15ML VIAL As Ordered ONE; -LIDOCAINE 1% SDV 30ML VIAL As Ordered ONE; -diazePAM 5MG TABLET As Ordered ONE; -methylPREDNISolone SUSP 40MG/ML 1ML VIAL (DEPO MEDROL) As Ordered ONE; -oxyCODONE 5MG TAB As Ordered ONE
== END ==
LOC: M PAIN 10:30
PROVIDERS: ATTEND Nurse Practitioner Family
DX: M79.18 Myalgia, other site (principal); G89.29 Other chronic pain; M50.10 Cervical disc disorder with radiculopathy, unspecified cervical region; E11.9 Type 2 diabetes mellitus without complications; E78.00 Pure hypercholesterolemia, unspecified; Z85.820 Personal history of malignant melanoma of skin; Z79.84 Long term (current) use of oral hypoglycemic drugs; Z79.899 Other long term (current) drug therapy; Z88.6 Allergy status to analgesic agent

== ENCOUNTER → 2023-09-30 | Outpatient (CLI) | payer OTHER ==
[~2023-09-30] MED LIST changes: +GLIP5TAB17 PO; -GLIP5TAB8 PO
== END ==
LOC: M PAIN 09:45
PROVIDERS: ATTEND Nurse Practitioner Family
DX: M79.18 Myalgia, other site (principal); G89.29 Other chronic pain; E11.9 Type 2 diabetes mellitus without complications; E78.00 Pure hypercholesterolemia, unspecified; M50.10 Cervical disc disorder with radiculopathy, unspecified cervical region; Z85.820 Personal history of malignant melanoma of skin; Z79.84 Long term (current) use of oral hypoglycemic drugs; Z79.899 Other long term (current) drug therapy; Z88.6 Allergy status to analgesic agent

== ENCOUNTER → 2023-10-19 | Outpatient (CLI) | payer OTHER | LOC: M RAD 08:58 | PROVIDERS: ATTEND Physician Assistant | DX: H90.3 Sensorineural hearing loss, bilateral (principal) ==

== ENCOUNTER 2023-12-06 13:23 | Emergency (ER) | payer OTHER ==
[~2023-12-06] VITALS: Ht 175.3 cm; Wt 100.2 kg
[2023-12-06 14:16] LABS: BASO % 0.8 % (0.0-1.0); EOS # 0.2 10^3/uL (0.0-0.5); EOS % 3.7 % (0.0-3.0); HEMATOCRIT 46.3 % (42.0-52.0); HEMOGLOBIN 15.3 g/dl (13.5-17.5); LYMPH # 1.6 10^3/uL (1.5-5.0); LYMPH % 31.7 % (24.0-44.0); MEAN CORPUSCULAR HEMOGLOBIN 29.4 pg (27.0-33.0); MONO # 0.4 10^3/uL (0.0-0.8); MONO % 8.3 % (2.0-8.0); NEUTROPHILS # 2.8 10^3/uL (1.5-8.5); NEUTROPHILS % 55.1 % (36.0-66.0); PLATELET COUNT, AUTOMATED 172 10^3/uL (150-450); WHITE BLOOD COUNT 5.2 10^3/uL (4.0-10.0)
[2023-12-06] MEDS ORDERED: ASPIRIN 81MG CHEW TABLET PO ONE (14:40)
[2023-12-06] MEDS ORDERED: SUCRALFATE SUSP 1GM/10ML UD PO ONE (14:40)
[2023-12-06] MEDS ORDERED: PANTOPRAZOLE 40MG VIAL IV ONE (14:40)
[2023-12-06 14:42] LABS: CK-MB VALUE MASS 2.5 NG/ML (<3.6); LIPASE 47 U/L (12-53)
[2023-12-06 14:45] LABS: ALBUMIN 4.1 G/DL (3.2-5.2); ALKALINE PHOSPHATASE 53 U/L (46-116); ALT/SGPT 37 U/L (7.0-40); AST/SGOT 30 U/L (<34); BILIRUBIN,DIRECT 0.2 MG/DL (<0.4); BILIRUBIN,TOTAL 0.4 MG/DL (0.3-1.2); BLOOD UREA NITROGEN 10 MG/DL (9-23); CALCIUM LEVEL 9.1 MG/DL (8.5-10.1); CARBON DIOXIDE LEVEL 29 MMOL/L (20-31); CHLORIDE LEVEL 112 MMOL/L (98-107); GLOMERULAR FILTRATION RATE > 60.0 (>56); GLUCOSE, FASTING 97 MG/DL (60-100); SODIUM LEVEL 146 MMOL/L (136-145); TOTAL PROTEIN 6.8 G/DL (5.7-8.2)
[2023-12-06 14:46] LABS: CPK CREATINE PHOSPHOKINASE 331 U/L (46-171); MB/CK RELATIVE INDEX 0.75 (< OR =4)
[2023-12-06] MEDS ORDERED: ISOVUE-370 76% 100ML VIAL As Ordered ONE (15:20)
[2023-12-06] MEDS ORDERED: SUCR1SS PO (17:20)
[2023-12-06] MEDS ORDERED: PROT1TAB2 PO (17:20)
[2023-12-06 17:35] LABS: INR 1.12; PROTHROMBIN TIME 14.1 SECONDS (12.5-14.5)
[2023-12-06 18:13] VITALS: BP 169/84; TEMP 97.8; O2SAT 98
== END 2023-12-06 18:24 | disposition home or self-care (01) ==
LOC: M ED 13:23
DX: R07.9 Chest pain, unspecified (principal); R00.1 Bradycardia, unspecified; E11.9 Type 2 diabetes mellitus without complications
CPT/HCPCS: 71045; 71275; 74177; 80048; 80076; 82550; 82553; 83690; 84484; 85025; 85610; 85730; 93005; 93041; 94760; 96374; 99285; C9113; Q9967

== ENCOUNTER → 2024-02-02 | Outpatient (CLI) | payer OTHER ==
[~2024-02-02] MED LIST changes: +PROT1TAB2 PO; +SUCR1SS PO; +TRIAMCINOLONE ACETONIDE SUSP 40MG/ML 1ML VIAL As Ordered ONE; +diazePAM 5MG TABLET As Ordered ONE; +oxyCODONE 5MG TAB As Ordered ONE
== END ==
LOC: M PAIN 08:30
PROVIDERS: ATTEND Anesthesiology
DX: M79.18 Myalgia, other site (principal); E11.9 Type 2 diabetes mellitus without complications; E78.00 Pure hypercholesterolemia, unspecified; M50.10 Cervical disc disorder with radiculopathy, unspecified cervical region; Z79.84 Long term (current) use of oral hypoglycemic drugs; Z79.899 Other long term (current) drug therapy; Z88.6 Allergy status to analgesic agent
CPT/HCPCS: 20553; J0665; J3301

== ENCOUNTER → 2024-03-01 | Outpatient (CLI) | payer OTHER ==
[~2024-03-01] MED LIST changes: -TRIAMCINOLONE ACETONIDE SUSP 40MG/ML 1ML VIAL As Ordered ONE; -diazePAM 5MG TABLET As Ordered ONE; -oxyCODONE 5MG TAB As Ordered ONE
== END ==
LOC: M PAIN 16:00
PROVIDERS: ATTEND Nurse Practitioner Family
DX: M79.18 Myalgia, other site (principal); G89.29 Other chronic pain; E11.9 Type 2 diabetes mellitus without complications; E78.00 Pure hypercholesterolemia, unspecified; M50.10 Cervical disc disorder with radiculopathy, unspecified cervical region; Z85.820 Personal history of malignant melanoma of skin; Z79.84 Long term (current) use of oral hypoglycemic drugs; Z79.899 Other long term (current) drug therapy; Z88.6 Allergy status to analgesic agent

== ENCOUNTER 2024-04-03 10:16 | Emergency (ER) | payer OTHER ==
[~2024-04-03] VITALS: Ht 175.3 cm; Wt 102.0 kg
[~2024-04-03 10:16] MED LIST changes: -ROSU40TA4 PO; +ROSU40TA63 PO
[2024-04-03 10:17] VITALS: TEMP 97.1
[2024-04-03 12:29] LABS: Trichomonas vaginalis (AMP) NOT DETECTED (NEGATIVE)
[2024-04-03 12:53] LABS: GC DNA AMPLIFICATION NEGATIVE (NEGATIVE)
[2024-04-03 15:15] VITALS: BP 151/78; O2SAT 98
== END 2024-04-03 15:16 | disposition home or self-care (01) ==
LOC: M ED 10:16
DX: R10.31 Right lower quadrant pain (principal); G47.33 Obstructive sleep apnea (adult) (pediatric); K21.9 Gastro-esophageal reflux disease without esophagitis; E78.5 Hyperlipidemia, unspecified; Z88.8 Allergy status to other drugs, medicaments and biological substances; Z79.810 Long term (current) use of selective estrogen receptor modulators (SERMs); Z79.899 Other long term (current) drug therapy; Z79.84 Long term (current) use of oral hypoglycemic drugs

== ENCOUNTER → 2024-04-05 | Outpatient (CLI) | payer OTHER | LOC: M PAIN 16:00 | PROVIDERS: ATTEND Nurse Practitioner Family | DX: M50.10 Cervical disc disorder with radiculopathy, unspecified cervical region (principal); G89.29 Other chronic pain; E11.9 Type 2 diabetes mellitus without complications; E78.00 Pure hypercholesterolemia, unspecified; Z79.84 Long term (current) use of oral hypoglycemic drugs; Z79.899 Other long term (current) drug therapy ==

== ENCOUNTER → 2024-06-05 | Outpatient (CLI) | payer OTHER ==
[~2024-06-05] MED LIST changes: -ESOM0.1C PO; +ESOM20CA2 PO; +ISOVUE-M 300 61% 15ML VIAL As Ordered ONE; +LIDOCAINE 1% SDV 30ML VIAL As Ordered ONE; +dexAMETHasone 10MG/1ML VIAL PRES.FREE As Ordered ONE; +diazePAM 5MG TABLET As Ordered ONE; +oxyCODONE 5MG TAB As Ordered ONE
== END ==
LOC: M PAIN 10:00
PROVIDERS: ATTEND Anesthesiology
DX: M50.13 Cervical disc disorder with radiculopathy, cervicothoracic region (principal); E11.9 Type 2 diabetes mellitus without complications; E78.00 Pure hypercholesterolemia, unspecified; Z79.84 Long term (current) use of oral hypoglycemic drugs; Z79.899 Other long term (current) drug therapy; G89.29 Other chronic pain
CPT/HCPCS: 62321; J1100; Q9967

== ENCOUNTER → 2024-07-12 | Outpatient (CLI) | payer OTHER ==
[~2024-07-12] MED LIST changes: -ISOVUE-M 300 61% 15ML VIAL As Ordered ONE; -LIDOCAINE 1% SDV 30ML VIAL As Ordered ONE; -ROSU40TA63 PO; +ROSU40TA81 PO; -dexAMETHasone 10MG/1ML VIAL PRES.FREE As Ordered ONE; -diazePAM 5MG TABLET As Ordered ONE; -oxyCODONE 5MG TAB As Ordered ONE
== END ==
LOC: M PAIN 10:45
PROVIDERS: ATTEND Nurse Practitioner Family
DX: G89.29 Other chronic pain (principal); M79.10 Myalgia, unspecified site; M50.10 Cervical disc disorder with radiculopathy, unspecified cervical region; E11.9 Type 2 diabetes mellitus without complications; E78.00 Pure hypercholesterolemia, unspecified; Z79.84 Long term (current) use of oral hypoglycemic drugs; Z79.899 Other long term (current) drug therapy

== ENCOUNTER 2024-08-22 11:21 | Observation (INO) | payer MEDICARE, OTHER ==
[~2024-08-22] VITALS: Ht 175.3 cm; Wt 101.8 kg
[2024-08-22 12:12] LABS: BASO % 0.7 % (0.0-1.0); EOS # 0.1 10^3/uL (0.0-0.5); EOS % 2.5 % (0.0-3.0); HEMATOCRIT 45.4 % (42.0-52.0); HEMOGLOBIN 15.4 g/dl (13.5-17.5); LYMPH # 1.3 10^3/uL (1.5-5.0); LYMPH % 22.7 % (24.0-44.0); MEAN CORPUSCULAR HEMOGLOBIN 29.8 pg (27.0-33.0); MEAN CORPUSCULAR HGB CONC 33.9 g/dl (32.0-36.5); MONO # 0.4 10^3/uL (0.0-0.8); MONO % 7.4 % (2.0-8.0); NEUTROPHILS # 3.7 10^3/uL (1.5-8.5); NEUTROPHILS % 66.5 % (36.0-66.0); PLATELET COUNT, AUTOMATED 131 10^3/uL (150-450); RED BLOOD COUNT 5.16 10^6/uL (4.30-6.10); WHITE BLOOD COUNT 5.6 10^3/uL (4.0-10.0)
[2024-08-22 12:28] LABS: CK-MB VALUE MASS 3.4 NG/ML (<3.6)
[2024-08-22 12:29] LABS: BLOOD UREA NITROGEN 10 MG/DL (9-23); CALCIUM LEVEL 9.4 MG/DL (8.5-10.1); CARBON DIOXIDE LEVEL 28 MMOL/L (20-31); CHLORIDE LEVEL 110 MMOL/L (98-107); CREATININE FOR GFR 0.87 MG/DL (0.70-1.30); GLOMERULAR FILTRATION RATE > 60.0 (>56); GLUCOSE, FASTING 119 MG/DL (60-100); POTASSIUM SERUM 3.8 MMOL/L (3.5-5.1); SODIUM LEVEL 144 MMOL/L (136-145)
[2024-08-22] MEDS ORDERED: NITROGLYCERIN 0.4MG SUBL TABLET SL PRN ×2 (12:30→16:55)
[2024-08-22] MEDS ORDERED: ASPIRIN 81MG CHEW TABLET PO ONE (12:30)
[2024-08-22 12:32] LABS: CPK CREATINE PHOSPHOKINASE 339 U/L (46-171)
[2024-08-22] MEDS ORDERED: ISOVUE-370 76% 100ML VIAL As Ordered ONE (12:39)
[2024-08-22 13:25] LABS: CK-MB VALUE MASS 3.3 NG/ML (<3.6)
[2024-08-22 13:31] LABS: MB/CK RELATIVE INDEX 0.89 (< OR =4)
[2024-08-22] MEDS ORDERED: CETI10TA4 PO (14:18)
[2024-08-22] MEDS ORDERED: GLIP5TAB17 PO (14:18)
[2024-08-22] MEDS ORDERED: PANT40TA29 PO (14:18)
[2024-08-22] MEDS ORDERED: JANU100T PO (14:19)
[2024-08-22] MEDS ORDERED: HOME MED LIST COMPLETE! XX SCH (14:20)
[2024-08-22] MEDS: glipiZIDE (GLUCOTROL) 5 MG TAB PO SCH (18:22)
[2024-08-22 19:50] LABS: CK-MB VALUE MASS 2.8 NG/ML (<3.6)
[2024-08-22 19:51] LABS: MB/CK RELATIVE INDEX 0.9 (< OR =4)
[2024-08-22] MEDS: DOCUSATE SODIUM 100MG CAPSULE PO SCH (21:56)
[2024-08-22] MEDS: FAMOTIDINE 20 MG TAB PO SCH (21:56)
[2024-08-22] MEDS: ROSUVASTATIN 10 MG TAB (CRESTOR) PO SCH (21:57)
[2024-08-22 23:33] VITALS: BP 144/85; TEMP 97.5; O2SAT 97
[2024-08-23 04:22] VITALS: BP 130/73; TEMP 98.6; O2SAT 97
[2024-08-23 07:15] LABS: BASO # 0.1 10^3/uL (0.0-0.2); BASO % 0.9 % (0.0-1.0); EOS # 0.2 10^3/uL (0.0-0.5); EOS % 3.3 % (0.0-3.0); HEMATOCRIT 46.6 % (42.0-52.0); HEMOGLOBIN 15.5 g/dl (13.5-17.5); LYMPH # 2.1 10^3/uL (1.5-5.0); LYMPH % 35.4 % (24.0-44.0); MEAN CORPUSCULAR HEMOGLOBIN 29.5 pg (27.0-33.0); MEAN CORPUSCULAR HGB CONC 33.3 g/dl (32.0-36.5); MEAN CORPUSCULAR VOLUME 88.8 fl (80.0-96.0); MONO # 0.5 10^3/uL (0.0-0.8); MONO % 8.6 % (2.0-8.0); NEUTROPHILS % 51.5 % (36.0-66.0); PLATELET COUNT, AUTOMATED 145 10^3/uL (150-450); RED BLOOD COUNT 5.25 10^6/uL (4.30-6.10); WHITE BLOOD COUNT 5.8 10^3/uL (4.0-10.0)
[2024-08-23 07:49] LABS: BLOOD UREA NITROGEN 10 MG/DL (9-23); CALCIUM LEVEL 9.3 MG/DL (8.5-10.1); CARBON DIOXIDE LEVEL 30 MMOL/L (20-31); CHLORIDE LEVEL 109 MMOL/L (98-107); CHOLESTEROL LEVEL 118 MG/DL (<200); CHOLESTEROL RISK RATIO 3.01 (<5); CPK CREATINE PHOSPHOKINASE 237 U/L (46-171); CREATININE FOR GFR 1.03 MG/DL (0.70-1.30); GLOMERULAR FILTRATION RATE > 60.0 (>56); GLUCOSE, FASTING 80 MG/DL (60-100); HDL CHOLESTEROL 39.1 MG/DL (>40); LDL CHOLESTEROL 49.3 MG/DL (<100); MB/CK RELATIVE INDEX 0.84 (< OR =4); NON-HDL-C 78.9 MG/DL; POTASSIUM SERUM 3.7 MMOL/L (3.5-5.1); SODIUM LEVEL 140 MMOL/L (136-145); TRIGLYCERIDES LEVEL 148 MG/DL (<150)
[2024-08-23 07:50] LABS: HEMOGLOBIN A1c 5.6 % (4.0-6.0)
[2024-08-23] MEDS ORDERED: ASPI81TAEC PO (08:05)
[2024-08-23] MEDS: CETIRIZINE (ZyrTEC) 10 MG TAB PO SCH (08:28)
[2024-08-23] MEDS: ASPIRIN 81MG ENTERIC TABLET PO SCH (08:28)
[2024-08-23] MEDS: PANTOPRAZOLE 40MG TAB (PROTONIX) PO SCH (08:28)
[2024-08-23] MEDS: ENOXAPARIN 40MG/0.4ML SYRINGE (J1650 PER 10MG) SC SCH (08:28)
[2024-08-23 12:00] VITALS: BP 150/84; TEMP 97.5; O2SAT 95
[2024-08-23] MEDS ORDERED: NITR4TASL SL (12:05)
[2024-08-23] MEDS ORDERED: SITagliptin 50 MG TAB (JANUVIA) PO SCH (12:30)
== END 2024-08-23 13:00 | disposition home or self-care (01) ==
LOC: EDBD 11:21 → M ED 11:21 → M ED INP 11:22 → M MS4PR 23:30
PROVIDERS: ADMIT Internal Medicine Nephrology; ATTEND Internal Medicine Nephrology
DX: R07.9 Chest pain, unspecified (principal); M25.512 Pain in left shoulder; M79.602 Pain in left arm; R20.0 Anesthesia of skin; R53.1 Weakness; K21.9 Gastro-esophageal reflux disease without esophagitis; K27.9 Peptic ulcer, site unspecified, unspecified as acute or chronic, without hemorrhage or perforation; M54.12 Radiculopathy, cervical region; Z98.1 Arthrodesis status; Z96.82 Presence of neurostimulator; E11.9 Type 2 diabetes mellitus without complications; I10 Essential (primary) hypertension; E78.5 Hyperlipidemia, unspecified; Z80.1 Family history of malignant neoplasm of trachea, bronchus and lung; Z88.8 Allergy status to other drugs, medicaments and biological substances; Z79.899 Other long term (current) drug therapy; Z79.82 Long term (current) use of aspirin
CPT/HCPCS: 36415; 70450; 70496; 70498; 71045; 72131; 80048; 80061; 82550; 82553; 83036; 84484; 85025; 93005; 93041; 93306; 94760; 96372; 99285; G0378; J1650; Q9967

== ENCOUNTER → 2024-09-06 | Outpatient (CLI) | payer OTHER ==
[~2024-09-06] MED LIST changes: +ASPI81TAEC PO; +CETI10TA4 PO; +JANU100T PO; +NITR4TASL SL; +PANT40TA29 PO
== END ==
LOC: M PAIN 13:00
PROVIDERS: ATTEND Anesthesiology
DX: M79.18 Myalgia, other site (principal); M79.10 Myalgia, unspecified site; M54.2 Cervicalgia; E11.9 Type 2 diabetes mellitus without complications; E78.00 Pure hypercholesterolemia, unspecified; Z85.820 Personal history of malignant melanoma of skin; Z79.82 Long term (current) use of aspirin; Z79.84 Long term (current) use of oral hypoglycemic drugs; Z79.899 Other long term (current) drug therapy; Z53.09 Procedure and treatment not carried out because of other contraindication

== ENCOUNTER → 2024-10-15 | Outpatient (CLI) | payer OTHER | LOC: M PAIN 10:30 | PROVIDERS: ATTEND Nurse Practitioner Family | DX: G89.29 Other chronic pain (principal); M79.18 Myalgia, other site; M50.10 Cervical disc disorder with radiculopathy, unspecified cervical region; E11.9 Type 2 diabetes mellitus without complications; E78.00 Pure hypercholesterolemia, unspecified; Z85.820 Personal history of malignant melanoma of skin; Z79.82 Long term (current) use of aspirin; Z79.84 Long term (current) use of oral hypoglycemic drugs; Z79.899 Other long term (current) drug therapy ==

== ENCOUNTER → 2024-11-02 | Outpatient (CLI) | payer OTHER ==
[~2024-11-02] MED LIST changes: +TRIAMCINOLONE ACETONIDE SUSP 40MG/ML 1ML VIAL As Ordered ONE; +diazePAM 5MG TABLET As Ordered ONE; +oxyCODONE 5MG TAB As Ordered ONE
== END ==
LOC: M PAIN 10:00
PROVIDERS: ATTEND Anesthesiology
DX: M79.18 Myalgia, other site (principal); G89.29 Other chronic pain; E11.9 Type 2 diabetes mellitus without complications; E78.00 Pure hypercholesterolemia, unspecified; M50.10 Cervical disc disorder with radiculopathy, unspecified cervical region; Z85.820 Personal history of malignant melanoma of skin; Z79.82 Long term (current) use of aspirin; Z79.84 Long term (current) use of oral hypoglycemic drugs; Z79.899 Other long term (current) drug therapy
CPT/HCPCS: 20553; J0665; J3301

== ENCOUNTER 2024-12-10 12:54 | Emergency (ER) | payer OTHER ==
[~2024-12-10] VITALS: Ht 175.3 cm; Wt 100.0 kg
[~2024-12-10 12:54] MED LIST changes: -TRIAMCINOLONE ACETONIDE SUSP 40MG/ML 1ML VIAL As Ordered ONE; -diazePAM 5MG TABLET As Ordered ONE; -oxyCODONE 5MG TAB As Ordered ONE
[2024-12-10] MEDS ORDERED: COLA100C5 PO (13:05)
[2024-12-10] MEDS: FLUORESCEIN OPHTH 1MG STRIP OD ONE (15:15)
[2024-12-10] MEDS: PROPARACAINE 0.5% OPHTH SOL 15ML OD ONE (15:15)
[2024-12-10] MEDS ORDERED: ERYT5OIN25 OP (15:37)
[2024-12-10 15:49] VITALS: BP 131/82; TEMP 97.6; O2SAT 96
== END 2024-12-10 15:52 | disposition home or self-care (01) ==
LOC: M ED 12:54
DX: S05.01XA Injury of conjunctiva and corneal abrasion without foreign body, right eye, initial encounter (principal); Y92.9 Unspecified place or not applicable; Y93.9 Activity, unspecified; Y99.9 Unspecified external cause status; E11.9 Type 2 diabetes mellitus without complications; E78.5 Hyperlipidemia, unspecified; G47.33 Obstructive sleep apnea (adult) (pediatric); K21.9 Gastro-esophageal reflux disease without esophagitis; Z88.8 Allergy status to other drugs, medicaments and biological substances; Z79.1 Long term (current) use of non-steroidal anti-inflammatories (NSAID); Z79.4 Long term (current) use of insulin; Z79.84 Long term (current) use of oral hypoglycemic drugs; Z79.899 Other long term (current) drug therapy

== ENCOUNTER → 2025-01-04 | Outpatient (CLI) | payer OTHER ==
[~2025-01-04] MED LIST changes: +COLA100C5 PO; +ERYT5OIN25 OP
== END ==
LOC: M PAIN 09:45
PROVIDERS: ATTEND Nurse Practitioner Family
DX: M79.18 Myalgia, other site (principal); M50.10 Cervical disc disorder with radiculopathy, unspecified cervical region; G89.29 Other chronic pain; E11.9 Type 2 diabetes mellitus without complications; E78.00 Pure hypercholesterolemia, unspecified; Z79.82 Long term (current) use of aspirin; Z79.84 Long term (current) use of oral hypoglycemic drugs; Z79.899 Other long term (current) drug therapy

== ENCOUNTER → 2025-04-15 | Outpatient (CLI) | payer OTHER | LOC: M PLAIMG 04-08 07:38 → M RAD 07:07 | PROVIDERS: ATTEND Pain Medicine Interventional Pain Medicine | DX: M54.12 Radiculopathy, cervical region (principal) ==

== ENCOUNTER → 2025-11-17 | Outpatient (CLI) | payer OTHER | LOC: M SLEEP 20:00 | PROVIDERS: ATTEND Registered Nurse | DX: G47.33 Obstructive sleep apnea (adult) (pediatric) (principal) ==